=== PATIENT | male | born 1985 | race Caucasian/White ===

== ENCOUNTER 2023-05-09 12:00 | Emergency (ER) | payer OTHER | END 2023-05-09 12:28 | disposition home or self-care (01) | LOC: CC.ED 12:00 | DX: S60.111A Contusion of right thumb with damage to nail, initial encounter (principal); Z79.899 Other long term (current) drug therapy; W23.1XXA Caught, crushed, jammed, or pinched between stationary objects, initial encounter | CPT/HCPCS: 11740; 73140-F5; 99283 ==